=== PATIENT | female | born 1980 | race Caucasian/White ===

== ENCOUNTER → 2024-03-30 10:40 | Outpatient (REF) | payer OTHER, SELFPAY | LOC: WDC 10:40 | PROVIDERS: ATTENDING PHYSICIAN Nurse Practitioner Women's Health; FAMILY PHYSICIAN Family Medicine | DX: Z12.31 Encounter for screening mammogram for malignant neoplasm of breast (principal) | CPT/HCPCS: 77063; 77067 ==

== ENCOUNTER → 2024-04-23 09:23 | Outpatient (REF) | payer OTHER, SELFPAY | LOC: WDC 09:23 | PROVIDERS: ATTENDING PHYSICIAN Nurse Practitioner Women's Health; FAMILY PHYSICIAN Family Medicine | DX: R92.8 Other abnormal and inconclusive findings on diagnostic imaging of breast (principal) | CPT/HCPCS: 76642 ==

== ENCOUNTER → 2024-04-26 07:11 | Outpatient (REF) | payer OTHER, SELFPAY ==
--- NOTE | 2024-04-26 09:54 | OID.BR.INTR ---
[facility] Breast Navigator - Initial
- -
Date of Contact: 04/26/24
Met with patient. Patient given written information on navigator services available at [facility]. Will follow up as needed per protocol.
== END ==
LOC: WDC 07:11
PROVIDERS: ATTENDING PHYSICIAN Nurse Practitioner Women's Health
DX: N63.11 Unspecified lump in the right breast, upper outer quadrant (principal)
CPT/HCPCS: 88305; 19083; 88341; 88360; A4648

== ENCOUNTER 2024-07-05 07:15 | Emergency (ER) | payer OTHER, SELFPAY ==
[2024-07-05 07:23] VITALS: BP 114/76
[2024-07-05 08:11] VITALS: BMI 35.2
[2024-07-05 08:15] VITALS: BP 107/69
--- NOTE | 2024-07-05 08:17 | ED.GENMED ---
History of Present Illness
General
Chief Complaint: Swelling
Source: patient
Exam Limitations: none
Time Seen by Provider: 07/05/24 07:52
Nursing documentation reviewed up to this point in time: agreed with
History of Present Illness
History of Present Illness:
43-year-old female with a past medical history of breast cancer status post right lumpectomy and lymph node resection on 06/19/2024 through [facility] who presents to the emergency department for evaluation of right arm pain and swelling. Patient
reports that last week she noticed some aching pain in her right elbow that was relatively mild. She attributed this to some occult trauma and did not think much of it but yesterday she started to notice some redness and pain in the right forearm
as well and so she came to the ER to be evaluated to check for blood clot. She cannot recall any trauma or injury. She has noticed a slight localized swelling in the forearm. She denies any fever or chills. She denies any chest pain, shortness
of breath, dizziness. No swelling or pain in the legs. She denies any known history of DVT/PE.
Past History
Past History
ED Past Medical History: None
Social History
Tobacco: Non-smoker
Alcohol: Occasional
Personal: Single
Employment: Employed
Review of Systems
Review of Systems
All Other Systems: ROS reviewed and negative except as documented in HPI and ROS
Constitutional: Denies fever
Respiratory: Denies cough or trouble breathing
Cardiac: Denies chest pain or syncope
Musculoskeletal: Reports other (Right arm pain and swelling)
Skin: Reports other (Redness right forearm)
Neurological: Denies dizzy
Phy Exam
Physical Exam
Physical Exam:
General: Awake, alert, oriented x3; no acute distress
Head: Normocephalic, atraumatic
Eyes: Conjunctiva normal
Throat: Airway intact, handling secretions
Neck: Trachea midline, supple without meningismus
Lungs: Breathing comfortably with no distress, normal respiratory rate, normal pulse ox, no cyanosis
Heart: Regular rate
Neuro: No gross deficits
Extremities: Patient has slight edema of the right upper extremity, she has area of erythema on the ventral aspect of the right forearm with palpable superficial vein which is tender to the touch; no streaking erythema up the arm; no swelling or
tenderness of the elbow, good range of motion of the right elbow and wrist, strong palpable distal pulse in the right upper extremity; she has no lower extremity edema
Scores
Heart Failure Risk
Heart Failure Risk Score: Not Applicable
Heart Score for Chest Pain Patients
STEMI patient?: Not applicable
Withdrawal Assessment of Alcohol
Withdrawal Assessment Completed?: Not applicable
Course
Orders/Labs/Results
Orders:
Orders
07/05/24 08:11
Test Result ONCE
US Periph Venous UPPER Ext RT Urgent
Comment:
Reason For Exam: RUE pain, swelling
07/05/24 08:35
CMP [Comprehensive Metabolic Panel] Urgent
Complete Blood Count/No Diff Urgent
HCG, Serum Qualitative Screen Urgent
PTT Urgent
Prothrombin Time Urgent
07/05/24 11:14
Case Management Consult ONCE
Case Management Consult: Discharge Planning
Comment: Eliquis
07/05/24 11:15
Apixaban [Eliquis] 10 mg PO BID
Abnormal Lab Results
07/05/24
08:35
RBC 4.11 L 10^6/uL
(4.20-5.40)
MCH 32.4 H pg
(27.0-31.0)
Glucose 100 H mg/dl
(70-99)
07/05/24 08:35
07/05/24 08:35
Vital Signs
Initial and Last Documented VS:
Initial Vital Signs
Temp Pulse Resp BP Pulse Ox
36.8 C 77 18 114/76 97
07/05/24 07:23 12/05/24 07:23 07/05/24 07:23 07/05/24 07:23 07/05/24 07:23
Last Documented Vital Signs
Temp Pulse Resp BP Pulse Ox
36.8 C 73 16 120/76 98
07/05/24 07:23 07/05/24 09:38 07/05/24 09:38 07/05/24 10:00 07/05/24 10:45
MDM/Problems Addressed
Differential Diagnosis Includes:
DVT, superficial thrombophlebitis, cellulitis, lymphangitis
MDM/Problems Addressed:
43-year-old female presents for evaluation of right arm pain, some redness and swelling in the setting of recent surgery. Vitals and exam as above. Will check labs including a CBC and CMP, coags. Check upper extremity ultrasound. Reassess after
the above.
Labs reviewed: CBC and CMP unremarkable. Ultrasound shows combination of occlusive and nonocclusive thrombus in the basilic vein�occlusive in the forearm nonocclusive in the upper arm. No thrombus in the proximal basilic vein. Case discussed with
hematology recommended starting on Eliquis 10 mg twice daily x 1 week then 5 mg twice daily for a total of 6 weeks of treatment. Follow-up as an outpatient. I did call the patient's surgeon and I was able to speak to the nurse practitioner�they
are okay with initiating Eliquis postop. Patient is very comfortable with this plan. Case management was consulted to help with prescription pricing. I spoke to the patient in detail about return precautions and follow-up plan, all questions
answered.
*Radiology
Radiology exam reviewed: radiology read reviewed
*Pulse Oximetry
Patient hypoxic: no
*Critical Care Note
Total Time (30-74mins, 75-104mins- exclusive of procedures): Not Applicable
Data Reviewed
Source: patient
Patient Management
Discussion with other providers: PCP (Discussed with patient's surgeon) and [employer] (Discussed with hematology)
ED Attending Note
-
Portions of this chart may have been created with voice recognition software.� Occasional wrong word or��sound alike� substitutions may have occurred due to the inherent limitations of voice recognition software.
Discharge Plan
Departure
Patient Disposition: Home (Routine Discharge)
Date of Disposition: 07/05/24
Time of Disposition: 11:20
Patient with high blood pressure during this ER visit?: No
Discharge Problem:
DVT (deep venous thrombosis), Superficial thrombophlebitis
Instructions: Deep Vein Thrombosis (DVT) ED
Prescriptions:
New
Eliquis 5 mg tablet
5 mg PO BID 42 Days Qty: 98 0RF
Rx Instructions:
Take 10mg (2 tabs) twice a day x1 week; then take 5mg twice a day thereafter
Referrals:
Estuardo Mckenzie DO [Active] - Call in 1-3 days for appt ([employer]--call to schedule follow up within the next 2-4 weeks)
Grace Shultz MD [Family Provider] - Follow up in 5-7 days
Activity Restrictions/Additional Instructions:
Thank you for visiting the Emergency Department at [facility].
1. Please schedule a follow up appointment as directed. Call first thing tomorrow morning to make an appointment.
2. If indicated, please take your medications as instructed and indicated on discharge paperwork.
3. If any of your symptoms do not improve, or persist, or become more severe within 6-12 hours, please return to the emergency department for further care.
4. Please return to the emergency department if you develop a headache, neck pain/stiffness, fever greater than 100.4F, chest pain, shortness of breath, persistent nausea, vomiting, slurred speech, difficulty walking, numbness/tingling, weakness,
signs of infection or any other symptoms that are worrisome to you.
Please call [phone] if you have any questions.
Interventions
Interventions:
*Risk Screen - Suicide Last Done: 07/05/24 07:23
*General Assessment Last Done: 07/05/24 07:23
*Neglect/Abuse Screening Last Done: 07/05/24 07:23
ED- Fall Risk Assessment Last Done: 07/05/24 08:20
*ED COVID-19 Vaccine History Last Done: 07/05/24 07:23
ED- Cardiac Assessment Last Done: 07/05/24 08:20
ED- Pulmonary Assessment Last Done: 07/05/24 08:20
ED-Skin Assessment Last Done: 07/05/24 08:20
Discharge Date and Time
Print Language: ARMENIAN
[2024-07-05 08:47] LABS: Hematocrit 38.2 % (37.0-47.0); Hemoglobin 13.3 g/dL (12.0-16.0); Mean Corp Hgb Conc. 34.8 g/dL (33.0-37.0); Mean Corpuscular Hgb 32.4 pg (27.0-31.0); Mean Corpuscular Volume 92.9 fL (81.0-99.0); Mean Platelet Volume 9.3 fL (7.4-10.4); Platelet Count 243 10^3/uL (130-400); Red Blood Cell Count 4.11 10^6/uL (4.20-5.40); Red Cell Dist. Width 11.9 % (11.5-14.5); White Blood Cell Count 5.6 10^3/uL (4.8-10.8)
[2024-07-05 08:59] LABS: INR 0.96; PT 13.2 Sec (11.4-14.6)
[2024-07-05 09:00] LABS: APTT 27.9 Sec (23.4-35.0)
[2024-07-05 09:07] LABS: HCG, Serum Qualitative Screen Negative
[2024-07-05 09:09] LABS: ALT (SGPT) 19 U/L (0-35); AST (SGOT) 23 U/L (14-36); Albumin 4.2 g/dl (3.5-5.0); Alkaline Phosphatase 48 U/L (38-126); Blood Urea Nitrogen 9 mg/dl (7-17); Calcium 9.2 mg/dl (8.4-10.2); Carbon Dioxide 25 mmol/L (22-30); Chloride 106 mmol/L (98-107); Estimated Creatinine Clearance 123 ml/min; Glucose 100 mg/dl (70-99); Potassium 4.6 mmol/L (3.5-5.1); Sodium 141 mmol/L (135-145); Total Bilirubin 0.5 mg/dl (0.2-1.3); Total Protein 6.8 g/dl (6.3-8.2); eGFR > 60.00
[2024-07-05 09:36] VITALS: BP 126/83
[2024-07-05 09:38] VITALS: BP 126/83
[2024-07-05 10:00] VITALS: BP 120/76
[2024-07-05] MEDS: ELIQUIS 10 MG PO (11:23)
--- NOTE | 2024-07-05 11:34 | EDRN ---
REviewed discharge instructions with patient. Verbalized understanding. Ambulated with steady gait to the lobby.
[2024-07-05 11:38] VITALS: BP 134/73
--- NOTE | 2024-07-05 12:00 | CM ---
CM confirmed $25 copay for Eliquis. Patient given coupon for ELiquis. CM updated bedside RN and ED MD>
== END 2024-07-05 11:39 | disposition home or self-care (01) ==
LOC: EMR 07:15
PROVIDERS: EMERGENCY PHYSICIAN Emergency Medicine; FAMILY PHYSICIAN Family Medicine
DX: I82.621 Acute embolism and thrombosis of deep veins of right upper extremity (principal); I80.8 Phlebitis and thrombophlebitis of other sites; Z85.3 Personal history of malignant neoplasm of breast
CPT/HCPCS: 99284; 80053; 84703; 85027; 85610; 85730; 93971